=== PATIENT | male | born 1975 | race Caucasian/White ===

== ENCOUNTER 2023-08-30 08:48 | Inpatient (IN) ==
[~2023-08-30 08:48] MED LIST: Buffered Lidocaine 1% SYRIN 1 ml INTRADERM ONE; Bupivacaine 0.5% SDV PF 30ML VIAL ONE; Famotidine IV 10 MG/ML 2 ml VIAL (20 mg) IV ONE; Lactated Ringers 1000 ml BAG 1,000 ML IV SCH; Lidocaine 1% w EPI 1:100,000 MDV 20 ML VIAL ONE
[2023-08-30] MEDS ORDERED: Famotidine IV 10 MG/ML 2 ml VIAL (20 mg) ONE (09:16)
[2023-08-30 09:26] LABS: Rapid COVID-19 Molecular Undetected (Undetected)
[2023-08-30] MEDS ORDERED: Ertapenem 1 GM in NS 0.9% 50 ML IVPB ONE (10:00)
[2023-08-30] MEDS ORDERED: Ondansetron 4 mg VIAL 2 MG/ML 2 ml VIAL ONE (14:16)
[2023-08-30] MEDS ORDERED: Dexamethasone IV 4 MG/ML VIAL 1 ml VIAL ONE ×2 (14:16→20:33)
[2023-08-30] MEDS ORDERED: HYDROmorphone 0.5 MG/0.5 ML SYRINGE ONE ×2 (14:16→19:56)
[2023-08-30] MEDS ORDERED: Rocuronium 50 mg VIAL 10 mg/ml 5 ml VIAL (50 mg) ONE ×4 (14:16→18:48)
[2023-08-30] MEDS ORDERED: Propofol 10 MG/ML 20 ML BTL ONE (14:16)
[2023-08-30] MEDS ORDERED: Lidocaine 2% PF 5 ML VIAL ONE (14:16)
[2023-08-30] MEDS ORDERED: Glycopyrrolate IV 0.2 MG/ML 1 ML VIAL ONE (14:16)
[2023-08-30] MEDS ORDERED: fentaNYL 250 mcg/5 ml 50 MCG/ML 5 ml VIAL (250 MCG) ONE (14:16)
[2023-08-30] MEDS ORDERED: Midazolam 2 mg/2 ml VIAL 1 mg/ml 2 ml VIAL (2 mg) ONE (14:17)
[2023-08-30] MEDS ORDERED: Acetaminophen IV 1 GM/100ML 1,000 MG/100 ML BAG IV ONE (21:21)
[2023-08-30] MEDS ORDERED: Ondansetron 4 mg VIAL 2 MG/ML 2 ml VIAL IV PRN (22:01)
[2023-08-30] MEDS ORDERED: HYDROmorphone 1 MG/1 ML SYRINGE IV SLOW PU PRN (22:05)
[2023-08-30] MEDS ORDERED: Al Hydrox/Mg Hydrox/Simet LIQ 30 ML UDC PO PRN (22:06)
[2023-08-30] MEDS: Lactated Ringers 1000 ml BAG 1,000 ML IV SCH (23:00)
[2023-08-31 05:51] LABS: ABS Lymphocytes 0.6 10^3/uL (1.0-4.8); ABS Monocytes 0.6 10^3/uL (0.0-1.1); ABS Neutrophils 10.5 10^3/uL (1.5-7.6); Hematocrit 43.3 % (38-53); Hemoglobin 14.4 g/dL (13.2-16.3); Lymphocyte % 5.2 %; Mean Corpuscular Hemoglobin 30.6 pg (27-33); Mean Corpuscular Hgb Conc 33.3 g/dL (31-36); Mean Corpuscular Volume 92.1 fL (80-97); Mean Platelet Volume 8.7 fL (7.5-11.2); Platelet Count 235 10^3/uL (150-450); Red Cell Distribution Width 14.6 % (12-17); White Blood Count 11.8 10^3/uL (3.6-10.2)
[2023-08-31 06:56] LABS: Calcium 8.4 mg/dL (8.6-10.3); Creatinine, Serum 1.05 mg/dL (0.67-1.17); Potassium 5.3 mmol/L (3.5-5.0); eGFR CKD-EPI 88.1 (>60)
[2023-08-31] MEDS: Lactated Ringers 1000 ml BAG 1,000 ML IV SCH (07:05)
[2023-08-31] MEDS ORDERED: Heparin 5000 UNITS/ML 1 mL VIAL SUBCUT SCH (22:00)
[2023-08-31] MEDS: oxyCODONE/Acetamin 5/325 mg TAB PO PRN (22:06)
[2023-09-01 05:58] LABS: ABS Eosinophils 0.1 10^3/uL (0.0-0.5); ABS Lymphocytes 1.9 10^3/uL (1.0-4.8); ABS Neutrophils 7.1 10^3/uL (1.5-7.6); ABS Nucleated RBC 0.01 10^3/ul; Eosinophil % 1.1 %; Hematocrit 40.6 % (38-53); Hemoglobin 13.8 g/dL (13.2-16.3); Lymphocyte % 18.7 %; Mean Corpuscular Hemoglobin 31.1 pg (27-33); Mean Corpuscular Hgb Conc 34.1 g/dL (31-36); Mean Corpuscular Volume 91.1 fL (80-97); Mean Platelet Volume 8.8 fL (7.5-11.2); Platelet Count 225 10^3/uL (150-450); Red Blood Count 4.45 10^6/uL (4.06-5.63); Red Cell Distribution Width 14.4 % (12-17); White Blood Count 10.2 10^3/uL (3.6-10.2)
[2023-09-01 06:15] LABS: Calcium 8.4 mg/dL (8.6-10.3); Creatinine, Serum 0.95 mg/dL (0.67-1.17); Potassium 4.5 mmol/L (3.5-5.0); eGFR CKD-EPI 99.3 (>60)
[2023-09-01] MEDS: oxyCODONE/Acetamin 5/325 mg TAB PO PRN ×2 (07:08→11:02)
== END 2023-09-01 11:15 | disposition home or self-care (01) | DRG 221 ==
LOC: OR 08:48 → SSU 23:12
PROVIDERS: ADMIT Surgery; ATTEND Surgery